=== PATIENT | female | born 1995 | race Caucasian/White ===

== ENCOUNTER 2017-12-09 08:13 | Emergency (ER) | payer BC ==
[2017-12-09 09:43] LABS: EGFR Non-African American 108.1 (>60)
[2017-12-09 09:50] LABS: Urine Appearance Clear; Urine Blood Negative (Negative); Urine Color Yellow; Urine Ketones Trace (Negative); Urine Protein 1+(30 mg/dL) (Negative); Urine Urobilinogen Negative (Negative)
[2017-12-09 09:51] LABS: ABS Basophils 0.1 10^3/ul (0-0.2); ABS Eosinophils 0.1 10^3/ul (0-0.6); ABS Lymphocytes 2.1 10^3/ul (1.0-4.8); ABS Neutrophils 8.6 10^3/ul (1.5-7.7); ABS Nucleated RBC 0 10^3/ul; Hematocrit 35 % (35-47); Hemoglobin 11.4 g/dl (12.0-16.0); Lymphocyte % 18.1 % (25-47); Mean Corpuscular HGB Conc 33 g/dl (31-36); Mean Corpuscular Hemoglobin 26 pg (27-31); Mean Corpuscular Volume 81 fL (80-97); Mean Platelet Volume 8 um3 (7.4-10.4); Nucleated Red Blood Cells % 0; Platelet Count 480 10^3/ul (150-450); Red Blood Count 4.31 10^6/ul (4.0-5.4); Red Cell Distribution Width 15 % (10.5-15); White Blood Count 11.9 10^3/ul (3.5-10.8)
[2017-12-09] MEDS ORDERED: chlorproMAZINE TAB* 50 MG PO PRN (14:12)
[2017-12-09] MEDS ORDERED: diPHENhydraMINE PO* 50 MG PO PRN (14:12)
[2017-12-09] MEDS: Haloperidol TAB* 5 MG PO PRN (16:40)
--- NOTE | 2017-12-10 09:10 | PN ---
ED Flex Patient Progress Note Date of Service: 12/10/17 Subjective: This is a 22 year-old F who is pending transfer to another psychiatric facility secondary to bipolar. Pt offers no complaints at this time. She states she slept well. Objective: Vitals: Most recent vital signs documented below. General NAD, Alert and oriented x3. Heart: rrr at 70 bpm Lungs: CTA or with rales, rhonchi, wheezing abd: soft nontender Laboratory: Current laboratory results documented below. Assessment: bipolar Plan: Pending psychiatric to transfer to [place] Disposition: home Condition: stable Vital Signs Temp Pulse Resp BP Pulse Ox 99.2 F 106 18 158/87 100 12/09/17 12:18 12/09/17 14:02 12/09/17 14:02 12/09/17 14:02 12/09/17 14:02 Lab Results - Entire Visit 12/09/17 12/09/17 12/09/17 18:21 09:20 09:20 WBC 11.9 H RBC 4.31 Hgb 11.4 L Hct 35 MCV 81 MCH 26 L MCHC 33 RDW 15 Plt Count 480 H MPV 8 Neut % (Auto) 72.1 Lymph % (Auto) 18.[address] % (Auto) 8.2 Eos % (Auto) 1.0 Baso % (Auto) 0.6 Absolute Neuts (auto) 8.6 H Absolute Lymphs (auto) 2.1 Absolute Monos (auto) 1.0 H Absolute Eos (auto) 0.1 Absolute Basos (auto) 0.1 Absolute Nucleated RBC 0 Nucleated RBC % 0 Sodium 135 Potassium 3.5 Chloride 103 Carbon Dioxide 23 Anion Gap 9 BUN 19 Creatinine 0.67 Est GFR ( Amer) 139.1 Est GFR (Non-Af Amer) 108.1 BUN/Creatinine Ratio 28.4 H Glucose 105 H Calcium 9.9 Total Bilirubin 0.80 AST 21 ALT 21 Alkaline Phosphatase 58 Total Protein 8.5 Albumin 4.6 Globulin 3.9 Albumin/Globulin Ratio 1.2 Triglycerides 67 Cholesterol 133 LDL Cholesterol 63 HDL Cholesterol 57.0 TSH 1.64 Free T4 1.03 Beta HCG, Quant < 0.60 Urine Color Urine Appearance Urine pH Ur Specific [place] Urine Protein Urine Ketones Urine Blood Urine Nitrate Urine Bilirubin Urine Urobilinogen Ur Leukocyte Esterase Urine WBC (Auto) Urine RBC (Auto) Ur Squamous Epith Cells Urine Bacteria Urine Glucose Salicylates < 2.50 Urine Opiates Screen Acetaminophen < 15 Ur Barbiturates Screen Ur Phencyclidine Scrn Ur Amphetamines Screen U Benzodiazepines Scrn Urine Cocaine Screen U Cannabinoids Screen Serum Alcohol < 10 12/09/17 12/09/17 09:10 09:10 WBC RBC Hgb Hct MCV MCH MCHC RDW Plt Count MPV Neut % (Auto) Lymph % (Auto) [facility] % (Auto) Eos % (Auto) Baso % (Auto) Absolute Neuts (auto) Absolute Lymphs (auto) Absolute Monos (auto) Absolute Eos (auto) Absolute Basos (auto) Absolute Nucleated RBC Nucleated RBC % Sodium Potassium Chloride Carbon Dioxide Anion Gap BUN Creatinine Est GFR ( Amer) Est GFR (Non-Af Amer) BUN/Creatinine Ratio Glucose Calcium Total Bilirubin AST ALT Alkaline Phosphatase Total Protein Albumin Globulin Albumin/Globulin Ratio Triglycerides Cholesterol LDL Cholesterol HDL Cholesterol TSH Free T4 Beta HCG, Quant Urine Color Yellow Urine Appearance Clear Urine pH 5.0 Ur Specific [place] 1.030 Urine Protein 1+(30 mg/dl) H Urine Ketones Trace H Urine Blood Negative Urine Nitrate Negative Urine Bilirubin Negative Urine Urobilinogen Negative Ur Leukocyte Esterase Negative Urine WBC (Auto) Trace(0-5/hpf) Urine RBC (Auto) 1+(3-5/hpf) H Ur Squamous Epith Cells Present H Urine Bacteria Absent Urine Glucose Negative Salicylates Urine Opiates Screen None detected Acetaminophen Ur Barbiturates Screen None detected Ur Phencyclidine Scrn None detected Ur Amphetamines Screen None detected U Benzodiazepines Scrn None detected Urine Cocaine Screen None detected U Cannabinoids Screen None detected Serum Alcohol
--- NOTE | 2017-12-10 10:23 | ED ---
Karol Santacruz Julia, scribed for Benigno Muniz MD on 12/09/17 at 0828 . Psychiatric Complaint - HPI Summary HPI Summary: This patient is a 22 year old F presenting to [facility] voluntarily for mental health evaluation. They deny current SI or HI. They deny any pain or self harm. They state that they would like to see a mental health optical designer soon and is requesting a meal. - History Of Current Complaint Chief Complaint: EDMentalHealth Hx Obtained From: Patient Character: Frustrated - impatient Has Suicidal: Denies: Thoughts, With A Plan Has Homicidal: Denies: Thoughts, With A Plan - Allergies/Home Medications Allergies/Adverse Reactions: Allergies Allergy/AdvReac Type Severity Reaction Status Date / Time No Known Allergies Allergy Verified 12/09/17 08:45 Home Medications: Home Medications NK [No Home Medications Reported] 12/09/17 [History Confirmed 12/09/17] PMH/Surg Hx/FS Hx/Imm Hx Sensory History: Denies: Hx Legally Blind EENT History: Denies: Hx Deafness Infectious Disease History: No Infectious Disease History: Denies: Traveled Outside the [place] in Last 30 Days Review of Systems Negative: Fever Musculoskeletal: Negative All Other Systems Reviewed And Are Negative: Yes Physical Exam - Summary Physical Exam Summary: Appearance: The patient is well-nourished in no acute distress and in no acute pain. Skin: The skin is warm and dry and skin color reflects adequate perfusion. HEENT: The head is normocephalic and atraumatic. The pupils are equal and reactive. The conjunctivae are clear and without drainage. Nares are patent and without drainage. Mouth reveals moist mucous membranes and the throat is without erythema and exudate. The external ears are intact. The ear canals are patent and without drainage. The tympanic membranes are intact. Neck: the neck is supple with full range of motion and non-tender. There are no carotid bruits. There is no neck vein distension. Respiratory: Chest is non-tender. Lungs are clear to auscultation and breath sounds are symmetrical and equal. Cardiovascular: Heart is regular rate and rhythm. There is no murmur or rub auscultated. There is no peripheral edema and pulses are symmetrical and equal. Abdomen: The abdomen is soft and non-tender. There are normal bowel sounds heard in all four quadrants and there is no organomegaly palpated. Musculoskeletal: There is no back tenderness noted. Extremities are non-tender with full range of motion. There is good capillary refill. There is no peripheral edema or calf tenderness elicited. Neurological: Patient is alert and oriented to person, place and time. The patient has symmetrical motor strength in all four extremities. Cranial nerves are grossly intact. Deep tendon reflexes are symmetrical and equal in all four extremities. Psychiatric: The patient has an appropriate affect and does not exhibit any anxiety or depression. Triage Information Reviewed: Yes Vital Signs On Initial Exam: Initial Vitals Temp Pulse Resp BP Pulse Ox 98.9 F 96 20 168/109 96 12/09/17 08:16 12/09/17 08:16 12/09/17 08:16 12/09/17 08:16 12/09/17 08:16 Vital Signs Reviewed: Yes Diagnostics - Vital Signs Vital Signs Temp Pulse Resp BP Pulse Ox 12/09/17 08:16 98.9 F 96 20 168/109 96 - Laboratory Lab Results: Lab Results 12/09/17 12/09/17 12/09/17 Range/Units 09:10 09:10 09:20 WBC (3.5-10.8) 10^3/ul RBC (4.0-5.4) 10^6/ul Hgb (12.0-16.0) g/dl Hct (35-47) % MCV (80-97) fL MCH (27-31) pg MCHC (31-36) g/dl RDW (10.5-15) % Plt Count (150-450) 10^3/ul MPV (7.4-10.4) um3 Neut % (Auto) (38-83) % Lymph % (Auto) (25-47) % [place] % (Auto) (1-9) % Eos % (Auto) (0-6) % Baso % (Auto) (0-2) % Absolute Neuts (auto) (1.5-7.7) 10^3/ul Absolute Lymphs (auto) (1.0-4.8) 10^3/ul Absolute Monos (auto) (0-0.8) 10^3/ul Absolute Eos (auto) (0-0.6) 10^3/ul Absolute Basos (auto) (0-0.2) 10^3/ul Absolute Nucleated RBC 10^3/ul Nucleated RBC % Sodium 135 (133-145) mmol/L Potassium 3.5 (3.5-5.0) mmol/L Chloride 103 (101-111) mmol/L Carbon Dioxide 23 (22-32) mmol/L Anion Gap 9 (2-11) mmol/L BUN 19 (6-24) mg/dL Creatinine 0.67 (0.51-0.95) mg/dL Est GFR ( Amer) 139.1 (>60) Est GFR (Non-Af Amer) 108.1 (>60) BUN/Creatinine Ratio 28.4 H (8-20) Glucose 105 H (70-100) mg/dL Calcium 9.9 (8.6-10.3) mg/dL Total Bilirubin 0.80 (0.2-1.0) mg/dL AST 21 (13-39) U/L ALT 21 (7-52) U/L Alkaline Phosphatase 58 (34-104) U/L Total Protein 8.5 (6.4-8.9) g/dL Albumin 4.6 (3.2-5.2) g/dL Globulin 3.9 (2-4) g/dL Albumin/Globulin Ratio 1.2 (1-3) Triglycerides 67 mg/dL Cholesterol 133 mg/dL LDL Cholesterol 63 mg/dL HDL Cholesterol 57.0 mg/dL TSH 1.64 (0.34-5.60) mcIU/mL Free T4 (0.61-1.12) ng/dL Beta HCG, Quant < 0.60 mIU/mL Urine Color Yellow Urine Appearance Clear Urine pH 5.0 (5-9) Ur Specific [place] 1.030 (1.010-1.030) Urine Protein 1+(30 mg/dl) H (Negative) Urine Ketones Trace H (Negative) Urine Blood Negative (Negative) Urine Nitrate Negative (Negative) Urine Bilirubin Negative (Negative) Urine Urobilinogen Negative (Negative) Ur Leukocyte Esterase Negative (Negative) Urine WBC (Auto) Trace(0-5/hpf) (Absent) Urine RBC (Auto) 1+(3-5/hpf) H (Absent) Ur Squamous Epith Cells Present H (Absent) Urine Bacteria Absent (Absent) Urine Glucose Negative (Negative) Salicylates < 2.50 (<30) mg/dL Urine Opiates Screen None detected (None Detect) Acetaminophen < 15 mcg/mL Ur Barbiturates Screen None detected (None Detect) Ur Phencyclidine Scrn None detected (None Detect) Ur Amphetamines Screen None detected (None Detect) U Benzodiazepines Scrn None detected (None Detect) Urine Cocaine Screen None detected (None Detect) U Cannabinoids Screen None detected (None Detect) Serum Alcohol < 10 (<10) mg/dL 12/09/17 12/09/17 Range/Units 09:20 18:21 WBC 11.9 H (3.5-10.8) 10^3/ul RBC 4.31 (4.0-5.4) 10^6/ul Hgb 11.4 L (12.0-16.0) g/dl Hct 35 (35-47) % MCV 81 (80-97) fL MCH 26 L (27-31) pg MCHC 33 (31-36) g/dl RDW 15 (10.5-15) % Plt Count 480 H (150-450) 10^3/ul MPV 8 (7.4-10.4) um3 Neut % (Auto) 72.1 (38-83) % Lymph % (Auto) 18.1 L (25-47) % Whitman % (Auto) 8.2 (1-9) % Eos % (Auto) 1.0 (0-6) % Baso % (Auto) 0.6 (0-2) % Absolute Neuts (auto) 8.6 H (1.5-7.7) 10^3/ul Absolute Lymphs (auto) 2.1 (1.0-4.8) 10^3/ul Absolute Monos (auto) 1.0 H (0-0.8) 10^3/ul Absolute Eos (auto) 0.1 (0-0.6) 10^3/ul Absolute Basos (auto) 0.1 (0-0.2) 10^3/ul Absolute Nucleated RBC 0 10^3/ul Nucleated RBC % 0 Sodium (133-145) mmol/L Potassium (3.5-5.0) mmol/L Chloride (101-111) mmol/L Carbon Dioxide (22-32) mmol/L Anion Gap (2-11) mmol/L BUN (6-24) mg/dL Creatinine (0.51-0.95) mg/dL Est GFR ( Amer) (>60) Est GFR (Non-Af Amer) (>60) BUN/Creatinine Ratio (8-20) Glucose (70-100) mg/dL Calcium (8.6-10.3) mg/dL Total Bilirubin (0.2-1.0) mg/dL AST (13-39) U/L ALT (7-52) U/L Alkaline Phosphatase (34-104) U/L Total Protein (6.4-8.9) g/dL Albumin (3.2-5.2) g/dL Globulin (2-4) g/dL Albumin/Globulin Ratio (1-3) Triglycerides mg/dL Cholesterol mg/dL LDL Cholesterol mg/dL HDL Cholesterol mg/dL TSH (0.34-5.60) mcIU/mL Free T4 1.03 (0.61-1.12) ng/dL Beta HCG, Quant mIU/mL Urine Color Urine Appearance Urine pH (5-9) Ur Specific [place] (1.010-1.030) Urine Protein (Negative) Urine Ketones (Negative) Urine Blood (Negative) Urine Nitrate (Negative) Urine Bilirubin (Negative) Urine Urobilinogen (Negative) Ur Leukocyte Esterase (Negative) Urine WBC (Auto) (Absent) Urine RBC (Auto) (Absent) Ur Squamous Epith Cells (Absent) Urine Bacteria (Absent) Urine Glucose (Negative) Salicylates (<30) mg/dL Urine Opiates Screen (None Detect) Acetaminophen mcg/mL Ur Barbiturates Screen (None Detect) Ur Phencyclidine Scrn (None Detect) Ur Amphetamines Screen (None Detect) U Benzodiazepines Scrn (None Detect) Urine Cocaine Screen (None Detect) U Cannabinoids Screen (None Detect) Serum Alcohol (<10) mg/dL Result Diagrams: 12/09/17 09:20 12/09/17 09:20 Lab Statement: Any lab studies that have been ordered have been reviewed, and results considered in the medical decision making process. Course/Dx - Course Course Of Treatment: Ankur presented with some mild to moderate laura, They were medically cleared and went over to the Flex unit to await a MHE. They were reaonably cooperative to the wait. - Differential Dx/Clinical Impression Provider Diagnosis: Bipolar disorder, Manic state Discharge - Discharge Plan Condition: Stable Disposition: OTHER Discharge Disposition Comment: Signed out to Dr. Keith at change of shift. Referrals: No Primary Care Phys,NOPCP [Primary Care Provider] - The documentation as recorded by the Karol damon Julia accurately reflects the service I personally performed and the decisions made by me, Benigno Muniz MD.
[2017-12-10] MEDS: Haloperidol TAB* 5 MG PO PRN (12:26)
--- NOTE | 2017-12-10 14:46 | ED ---
Lucien Santacruz Angela, scribed for Keith Kurtz MD on 12/10/17 at 0846 . Progress - Progress Note Progress Note: Pt was evaluated by Dr. Kenney, who recommends transfer. I discussed the case with Dr. Preciado, from [facility], where the pt will be transferred. Her diagnosis is bipolar disorder and manic state. Pt was medically cleared by Dr. Muniz, and now pt will be transferred to [facility]. Pt is hemodynamically stable, alert and oriented x3. Dr. Preciado accepted the pt for transfer. Condition: Stable Disposition: Transfer to [facility] Course/Dx - Diagnoses Provider Diagnoses: Bipolar disorder, Manic state The documentation as recorded by the Lucien damon Angela accurately reflects the service I personally performed and the decisions made by me, Keith Kurtz MD.
[2017-12-10 16:16] VITALS: BP 136/65
== END 2017-12-10 16:15 ==
LOC: ED 08:13
DX: F31.9 Bipolar disorder, unspecified (principal)
CPT/HCPCS: 36415; 80053; 80061; 80307; 80320; 80329; 81003; 81015; 84439; 84443; 84702; 85025; 86592; 93005; 99285; A9270-GY; G0480

== ENCOUNTER 2017-12-11 05:01 | Inpatient (IN) | payer BC ==
[2017-12-11 05:51] LABS: ABS Basophils 0.1 10^3/ul (0-0.2); ABS Eosinophils 0.1 10^3/ul (0-0.6); ABS Lymphocytes 2.1 10^3/ul (1.0-4.8); ABS Monocytes 0.8 10^3/ul (0-0.8); ABS Neutrophils 9.1 10^3/ul (1.5-7.7); ABS Nucleated RBC 0 10^3/ul; Eosinophil % 0.8 % (0-6); Hematocrit 34 % (35-47); Mean Corpuscular HGB Conc 33 g/dl (31-36); Mean Corpuscular Hemoglobin 27 pg (27-31); Mean Corpuscular Volume 82 fL (80-97); Mean Platelet Volume 8 um3 (7.4-10.4); Nucleated Red Blood Cells % 0; Platelet Count 431 10^3/ul (150-450); Red Blood Count 4.15 10^6/ul (4.0-5.4); Red Cell Distribution Width 14 % (10.5-15); White Blood Count 12.2 10^3/ul (3.5-10.8)
[2017-12-11 05:55] LABS: Urine Appearance Clear; Urine Blood 1+ (Negative); Urine Color Straw; Urine Ketones Negative (Negative); Urine Protein Negative (Negative); Urine Specific Gravity 1.008 (1.010-1.030); Urine Urobilinogen Negative (Negative)
[2017-12-11 06:03] LABS: EGFR Non-African American 127.7 (>60)
[2017-12-11] MEDS: hydrOXYzine HCL TAB* 50 MG PO PRN (21:09)
[2017-12-11] MEDS: diPHENhydraMINE PO* 50 MG PO PRN (22:30)
[2017-12-12] MEDS: hydrOXYzine HCL TAB* 50 MG PO PRN (03:40)
[2017-12-12] MEDS: Acetaminophen TAB* 325 MG PO PRN (04:56)
[2017-12-12] MEDS ORDERED: Polyethylene Glycol 3350* 17 GM PACKET PO PRN (11:23)
[2017-12-12] MEDS: Divalproex DR TAB(*) 500 MG PO SCH ×2 (12:37→21:13)
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
[2017-12-12] MEDS: diPHENhydraMINE PO* 50 MG PO PRN (21:13)
[2017-12-13] MEDS: Haloperidol TAB* 5 MG PO PRN (00:18)
--- NOTE | 2017-12-13 00:33 | ED ---
Lizz Santacruz Gabriel, scribed for Gurinder Keith MD on 12/11/17 at 0554 . Psychiatric Complaint - HPI Summary HPI Summary: This patient is a 22 year old F BIBA to [facility] after she contacted EMS for herself. The patient would like a MHE and has been admitted for mental previously. She states she is having trouble establishing boundaries in the context of her life. She is currently not on any medications. Patient denies SI and HI - History Of Current Complaint Chief Complaint: EDMentalHealth Time Seen by Provider: 12/11/17 05:16 Hx Obtained From: Patient Onset/Duration: Still Present Timing: Constant Severity Initially: Moderate Severity Currently: Moderate Related History: Positive For: Prior Psychiatric Issues Has Suicidal: Denies: Thoughts, With A Plan Has Homicidal: Denies: Thoughts, With A Plan - Allergies/Home Medications Allergies/Adverse Reactions: Allergies Allergy/AdvReac Type Severity Reaction Status Date / Time No Known Allergies Allergy Verified 12/11/17 22:57 PMH/Surg Hx/FS Hx/Imm Hx Endocrine/Hematology History: Denies: Hx Blood Disorders, Hx Blood Transfusions, Hx Diabetes, Hx Systemic Lupus Erythematosus, Hx Thyroid Disease GI History: Denies: Hx Gall Bladder Disease History: Denies: Hx Dialysis Sensory History: Denies: Hx Legally Blind, Hx Deafness Opthamlomology History: Denies: Hx Legally Blind Psychiatric History: Denies: Hx Eating Disorder, Hx of Violent Episodes Against Others Infectious Disease History: No Infectious Disease History: Denies: Traveled Outside the [place] in Last 30 Days - Family History Known Family History: Positive: Hypertension Negative: Respiratory Disease, Seizure Disorder - Social History Alcohol Use: Occasionally Substance Use Type: Reports: Marijuana Substance Use Comment - Amount & Last Used: OCCASIONAL Smoking Status (MU): Never Smoked Tobacco Review of Systems Negative: Fever Psychological: Other - NEGATIVE SI and HI All Other Systems Reviewed And Are Negative: Yes Physical Exam - Summary Physical Exam Summary: VITAL SIGNS: Reviewed. GENERAL: Patient is a well-developed and nourished female who is lying comfortable in the stretcher. Patient is not in any acute respiratory distress. HEAD AND FACE: No signs of trauma. No ecchymosis, hematomas or skull depressions. No sinus tenderness. EYES: PERRLA, EOMI x 2, No injected conjunctiva, no nystagmus. EARS: Hearing grossly intact. Ear canals and tympanic membranes are within normal limits. MOUTH: Oropharynx within normal limits. NECK: Supple, trachea is midline, no adenopathy, no JVD, no carotid bruit, no c- spine tenderness, neck with full ROM. CHEST: Symmetric, no tenderness at palpation LUNGS: Clear to auscultation bilaterally. No wheezing or crackles. CVS: Regular rate and rhythm, S1 and S2 present, no murmurs or gallops appreciated. ABDOMEN: Soft, non-tender. No signs of distention. No rebound no guarding, and no masses palpated. Bowel sounds are normal. EXTREMITIES: FROM in all major joints, no edema, no cyanosis or clubbing. NEURO: Alert and oriented x 3. No acute neurological deficits. Speech is normal and follows commands. SKIN: Dry and warm Triage Information Reviewed: Yes Vital Signs On Initial Exam: Initial Vitals Temp Pulse Resp BP Pulse Ox 98.2 F 80 22 157/82 97 12/11/17 05:02 12/11/17 05:02 12/11/17 05:02 12/11/17 05:02 12/11/17 05:02 Vital Signs Reviewed: Yes Diagnostics - Vital Signs Vital Signs Temp Pulse Resp BP Pulse Ox 12/11/17 05:02 98.2 F 80 22 157/82 97 - Laboratory Lab Results: Lab Results 12/11/17 Range/Units 05:17 WBC 12.2 H (3.5-10.8) 10^3/ul RBC 4.15 (4.0-5.4) 10^6/ul Hgb 11.0 L (12.0-16.0) g/dl Hct 34 L (35-47) % MCV 82 (80-97) fL MCH 27 (27-31) pg MCHC 33 (31-36) g/dl RDW 14 (10.5-15) % Plt Count 431 (150-450) 10^3/ul MPV 8 (7.4-10.4) um3 Neut % (Auto) 74.7 (38-83) % Lymph % (Auto) 17.0 L (25-47) % [place] % (Auto) 6.8 (1-9) % Eos % (Auto) 0.8 (0-6) % Baso % (Auto) 0.7 (0-2) % Absolute Neuts (auto) 9.1 H (1.5-7.7) 10^3/ul Absolute Lymphs (auto) 2.1 (1.0-4.8) 10^3/ul Absolute Monos (auto) 0.8 (0-0.8) 10^3/ul Absolute Eos (auto) 0.1 (0-0.6) 10^3/ul Absolute Basos (auto) 0.1 (0-0.2) 10^3/ul Absolute Nucleated RBC 0 10^3/ul Nucleated RBC % 0 Result Diagrams: 12/11/17 05:17 12/11/17 05:17 Lab Statement: Any lab studies that have been ordered have been reviewed, and results considered in the medical decision making process. Course/Dx - Differential Dx/Clinical Impression Provider Diagnosis: Depression Discharge - Discharge Plan Condition: Stable Disposition: HOME The documentation as recorded by the Lizz damon Gabriel accurately reflects the service I personally performed and the decisions made by Sagar dejesus Abdul, MD.
[2017-12-13] MEDS: Divalproex DR TAB(*) 500 MG PO SCH ×2 (09:30→22:00)
--- NOTE | 2017-12-13 11:43 | PN ---
MHU: Group Therapy Note - Service Type Service Type: [id number] Group Psychotherapy - Cognitive Behavioral Group Therapy ( CBT):Patient was attentive and participatory in CBT programming this morning, and remained in good behavioral control. Patient expressed positive insights regarding relevant treatment interventions and goals.
--- NOTE | 2017-12-13 14:26 | PN ---
Subjective - Subjective Service Type: 97870 Hosp care 25 min moderate complexity Subjective: Ankur reports "I'm feeling great. I'm feeling settled." She reports she is more calm and "I know why everything is happening at the same time." She states she is trying to refrain from taking responsibility for peers. She states she wants to help a specific peer because she speaks Icelandic. Ankur states that she is hopeful to be able to work Sunday evening for a garnett's event. She also states she is willing to stay in hospital as long as she needs to for stabilization. She reports mild acid reflux and sedation, but denies this is problematic for medication adherence. She states her mother, Emily Mera, is en route from [place] and gives fha underwriter permission to speak with her. Welder Assistant phones Mrs Mera at [phone]. She gives collateral that Ankur is delusional about being able to speak Icelandic-- that Mr Mera does but Ankur is not fluent more than ordering from restaurants. She states Ankur has a history of being more emotional when she doesn't get enough sleep. She also reports behaviors that are uncharacteristic of Ankur: using parents' emergency credit card to take friends out for dinner and drinks and similar large gestures. She reiterates that previous manic episodes included excessive spending and diminishing her bank account, plans to get , pawning tamara items. Mrs Mera states she is available to meet with fha underwriter and Ankur tomorrow afternoon. Welder Assistant is available at 2pm. Objective - Appearance Appearance: Well Developed/Nourished Dysmorphic Features: No Hygiene: Normal Grooming: Well Kept - Behavior Psychomotor Activities: Normal Exhibits Abnormal Movement: No - Attitude and Relatedness Attitude and Relatedness: Cooperative Eye Contact: Good - Speech Quality: Unpressured Latencies: Normal Quantity: Copious - Mood Patient's Decription of Mood: "Great" - Affect Observed Affect: Expansive Affect Consistent with: Euphoria - Thought Process Patient's Thought Process: Disorganized - grandiose, Loose Associations Thought Content: No Passive Wish, No Suicidal Planning, No Homicidal Ideation, No Paranoid Ideation - Sensorium Experiencing Hallucinations: No, Sensorium is Clear Type of Hallucinations: Visual: No, Auditory: No, Command: No - Level of Consciousness Level of Consciousness: Alert Orientation: Yes Intact, Yes Orientated to Time, Yes Orientated to Place, Yes Orientated to Person - Impulse Control Impulse Control: Poor - Insight and Judgement Insight and Judgement: Poor - Group Participation Particating in Group Activities: Yes - Medication Management Medication Management Adherence: Yes Assessment - Assessment Merits Inpatient Hospitalization: For Immediate Safety, For Stabilization, To Initiate Treatment, Consolidate Improvements, Pending Safe DC Plan Inpatient DSM-IV Dx: bipolar I d/o, most recent episode manic Clinical Impression: First psychiatric hospitalization for a 22yo [place]- female who presents as gender neutral. She presented to ED twice this week in a manic episode. She is agreeable to medication management. She submitted a 72-hour notice on 08/10/18 at 2215. She states she is willing to continue with hospitalization for stabilization. Plan - Plan Treatment Plan: Name: BRENNEN MERA Birthdate: 1995 [id number] continue acute intensive psychiatric treatment. decrease observation to q30min. family meeting 12/14/17 at 1400. Continued Medication Management: Start Medication Medications: Current Medications Acetaminophen (Tylenol Tab*) 650 mg PO Q4H PRN PRN Reason: for pain; or Temp >101 F Last Admin: 12/12/17 04:56 Dose: 650 mg Al Hydrox/Mg Hydrox/Simethicone (Maalox Plus*) 30 ml PO Q4H PRN PRN Reason: INDIGESTION Diphenhydramine HCl (Benadryl Po*) 50 mg PO BEDTIME PRN PRN Reason: INSOMNIA Last Admin: 12/12/17 21:13 Dose: 50 mg Divalproex Sodium (Depakote Dr Tab(*)) 500 mg PO BID HERMILO Last Admin: 12/13/17 09:30 Dose: 500 mg Haloperidol (Haldol Tab*) 5 mg PO Q6H PRN PRN Reason: anxiety/agitation Last Admin: 12/13/17 00:18 Dose: 5 mg Hydroxyzine HCl (Atarax Tab*) 50 mg PO Q6H PRN PRN Reason: ANXIETY Last Admin: 12/12/17 03:40 Dose: 50 mg Polyethylene Glycol/Electrolytes (Miralax*) 17 gm PO DAILY PRN PRN Reason: CONSTIPATION Last Admin: 12/12/17 12:00 Dose: 17 gm 12/13: increase depakote hs dose to 1000mg - Discharge Plan Discharge Plan: Outpatient Follow Up Outpatient Program: [facility]
[2017-12-13] MEDS: Al Hydrox/Mg Hydrox/Simet LIQ* 30 ML UDC PO PRN ×2 (15:52→23:30)
--- NOTE | 2017-12-13 16:40 | PN ---
MHU: Group Therapy Note - Service Type Service Type: [id number] Group Psychotherapy - Medication Education Group: Patient joined group and was intermittently in room. Patient asked questions that were not particularly on topic. Patient receptive to redirection when monopolizing group.
[2017-12-14] MEDS: hydrOXYzine HCL TAB* 50 MG PO PRN
[2017-12-14] MEDS: diPHENhydraMINE PO* 50 MG PO PRN (02:45)
[2017-12-14] MEDS: Divalproex DR TAB(*) 500 MG PO SCH ×2 (08:06→21:20)
[2017-12-14] MEDS: Al Hydrox/Mg Hydrox/Simet LIQ* 30 ML UDC PO PRN (09:25)
--- NOTE | 2017-12-14 17:00 | PN ---
Subjective - Subjective Service Type: 10290 Hosp care 35 min high complexity Subjective: Patient is noted to be intrusive to peers in that she feels responsibility to console and help them. She continues to endorse paranoid ideation, hypergraphia and racing thoughts. She is unaware of her behavior that has alarmed her current employer. She is currently on paid leave due to intense and inappropriate behavior. Patient participated in latter portion of 1-hour family meeting with her mother, Emily Yoo; Qian De [place] LMSW;and law writer. Please see SW note. Patient agreed to continue with hospitalization and rescinded 72-hour notice. She reports mild improvement in mood stabilization. She exhibits lability, especially in relation to her relationship with current partner. Privately, Mrs Yoo notifies providers of that Ankur's current state is atypical for her and aligns with manic criteria. Objective - Appearance Appearance: Well Developed/Nourished Dysmorphic Features: No Hygiene: Normal Grooming: Well Kept - Behavior Psychomotor Activities: Normal Exhibits Abnormal Movement: No - Attitude and Relatedness Attitude and Relatedness: Cooperative Eye Contact: Good - Speech Quality: Pressured Latencies: Normal Quantity: Copious - Mood Patient's Decription of Mood: "Great" - Affect Observed Affect: Expansive Affect Consistent with: Euphoria - Thought Process Patient's Thought Process: Loose Associations, Over Inclusive Thought Content: Yes Paranoid Ideation, No Passive Wish, No Suicidal Planning, No Homicidal Ideation - Sensorium Experiencing Hallucinations: No, Sensorium is Clear Type of Hallucinations: Visual: No, Auditory: No, Command: No - Level of Consciousness Level of Consciousness: Alert Orientation: Yes Intact, Yes Orientated to Time, Yes Orientated to Place, Yes Orientated to Person - Impulse Control Impulse Control: Poor - Insight and Judgement Insight and Judgement: Poor - Group Participation Particating in Group Activities: Yes - Medication Management Medication Management Adherence: Yes Assessment - Assessment Merits Inpatient Hospitalization: For Immediate Safety, For Stabilization, To Initiate Treatment, Pending Safe DC Plan Inpatient DSM-IV Dx: bipolar I d/o, most recent episode manic Clinical Impression: First psychiatric hospitalization for a 22yo [place]- female who presents as gender neutral. She presented to ED twice this week in a manic episode. She is agreeable to medication management. She submitted a 72-hour notice on 08/10/18 at 2215. She states she is willing to continue with hospitalization for stabilization. Plan - Plan Treatment Plan: Name: BRENNEN YOO Birthdate: 1995 [id number] continue acute intensive psychiatric treatment. patient rescinded the 72-hour notice. decrease observation to q30min and allow staff pass. valproic acid level, hgba1c and lipid panel on 12/15/17. Continued Medication Management: Start Medication Medications: Current Medications Acetaminophen (Tylenol Tab*) 650 mg PO Q4H PRN PRN Reason: for pain; or Temp >101 F Last Admin: 12/12/17 04:56 Dose: 650 mg Al Hydrox/Mg Hydrox/Simethicone (Maalox Plus*) 30 ml PO Q4H PRN PRN Reason: INDIGESTION Last Admin: 12/14/17 09:25 Dose: 30 ml Diphenhydramine HCl (Benadryl Po*) 50 mg PO BEDTIME PRN PRN Reason: INSOMNIA Last Admin: 12/14/17 02:45 Dose: 50 mg Divalproex Sodium (Depakote Dr Tab(*)) 1,000 mg PO BEDTIME HERMILO Last Admin: 12/13/17 22:00 Dose: 1,000 mg Divalproex Sodium (Depakote Dr Tab(*)) 500 mg PO DAILY HERMILO Last Admin: 12/14/17 08:06 Dose: 500 mg Haloperidol (Haldol Tab*) 5 mg PO Q6H PRN PRN Reason: anxiety/agitation Last Admin: 12/13/17 00:18 Dose: 5 mg Hydroxyzine HCl (Atarax Tab*) 50 mg PO Q6H PRN PRN Reason: ANXIETY Last Admin: 12/14/17 00:00 Dose: 50 mg Polyethylene Glycol/Electrolytes (Miralax*) 17 gm PO DAILY PRN PRN Reason: CONSTIPATION Last Admin: 12/12/17 12:00 Dose: 17 gm - Discharge Plan Discharge Plan: Outpatient Follow Up Outpatient Program: [facility]
[2017-12-15] MEDS: Al Hydrox/Mg Hydrox/Simet LIQ* 30 ML UDC PO PRN (07:24)
[2017-12-15] MEDS: Divalproex DR TAB(*) 500 MG PO SCH ×2 (07:24→20:06)
[2017-12-15] MEDS: diPHENhydraMINE PO* 50 MG PO PRN (23:05)
[2017-12-15] MEDS: Haloperidol TAB* 5 MG PO PRN (23:05)
[2017-12-16] MEDS: Divalproex DR TAB(*) 500 MG PO SCH ×2 (07:05→20:10)
[2017-12-16] MEDS: Al Hydrox/Mg Hydrox/Simet LIQ* 30 ML UDC PO PRN (15:32)
--- NOTE | 2017-12-16 18:35 | PN ---
Subjective - Subjective Date of Service: 12/16/17 Service Type: 99208 Hosp care 15 min low complexity Subjective: Ankur has been in the milieu most of the day and was very interested to see me. Reported that she has been feeling much improved. Mind isn't racing anymore. Slept 4-5 hours last night. Not anxious to leave. Tolerating Depakote well. Objective - Appearance Appearance: Obese Dysmorphic Features: No Hygiene: Normal Grooming: Well Kept - Behavior Exhibits Abnormal Movement: No - Attitude and Relatedness Attitude and Relatedness: Appropriate Eye Contact: Good - Speech Quality: Unpressured Latencies: Normal Quantity: Appropriate - Mood Patient's Decription of Mood: "Great" - Affect Observed Affect: Non-labile - Thought Process Patient's Thought Process: Coherent, Goal Directed Thought Content: No Passive Wish, No Suicidal Planning, No Homicidal Ideation, No Paranoid Ideation - Sensorium Experiencing Hallucinations: No, Sensorium is Clear Type of Hallucinations: Visual: No, Auditory: No, Command: No - Level of Consciousness Level of Consciousness: Alert Orientation: Yes Intact, Yes Orientated to Time, Yes Orientated to Place, Yes Orientated to Person - Impulse Control Impulse Control: Intact - Insight and Judgement Insight and Judgement: Fair - Group Participation Particating in Group Activities: No - Medication Management Medication Management Adherence: Yes Assessment - Assessment Merits Inpatient Hospitalization: Consolidate Improvements, For Discharge Planning Inpatient DSM-IV Dx: bipolar I d/o, most recent episode manic Plan - Plan Treatment Plan: Name: BRENNEN YOO Birthdate: 1995 [id number] Continued Medication Management: Continue Outpt Medication Medications: Current Medications Acetaminophen (Tylenol Tab*) 650 mg PO Q4H PRN PRN Reason: for pain; or Temp >101 F Last Admin: 12/12/17 04:56 Dose: 650 mg Al Hydrox/Mg Hydrox/Simethicone (Maalox Plus*) 30 ml PO Q4H PRN PRN Reason: INDIGESTION Last Admin: 12/16/17 15:32 Dose: 30 ml Diphenhydramine HCl (Benadryl Po*) 50 mg PO BEDTIME PRN PRN Reason: INSOMNIA Last Admin: 12/15/17 23:05 Dose: 50 mg Divalproex Sodium (Depakote Dr Tab(*)) 1,000 mg PO BEDTIME HERMILO Last Admin: 12/15/17 20:06 Dose: 1,000 mg Divalproex Sodium (Depakote Dr Tab(*)) 500 mg PO DAILY HERMILO Last Admin: 12/16/17 07:05 Dose: 500 mg Haloperidol (Haldol Tab*) 5 mg PO Q6H PRN PRN Reason: anxiety/agitation Last Admin: 12/15/17 23:05 Dose: 5 mg Hydroxyzine HCl (Atarax Tab*) 50 mg PO Q6H PRN PRN Reason: ANXIETY Last Admin: 12/14/17 00:00 Dose: 50 mg Polyethylene Glycol/Electrolytes (Miralax*) 17 gm PO DAILY PRN PRN Reason: CONSTIPATION Last Admin: 12/12/17 12:00 Dose: 17 gm - Discharge Plan Discharge Plan: Outpatient Follow Up Outpatient Program: [facility]
[2017-12-16] MEDS: Haloperidol TAB* 5 MG PO PRN (21:05)
[2017-12-16] MEDS: diPHENhydraMINE PO* 50 MG PO PRN (22:37)
[2017-12-16] MEDS: hydrOXYzine HCL TAB* 50 MG PO PRN (22:37)
[2017-12-17] MEDS: Divalproex DR TAB(*) 500 MG PO SCH ×2 (08:43→20:15)
--- NOTE | 2017-12-17 11:37 | PN ---
Subjective - Subjective Service Type: 67073 Hosp care 25 min moderate complexity Subjective: Patient continues to be intrusive and overly involved with peers' treatment. She is distractible and has not yet finished the MMPI questionnaire. Patient reports feeling sleepy and often lies down, sleeps briefly. She has plans to return to work after "paid leave" and is thinking about getting a second job, as well. She states she had a relaxing weekend and watched the olympics. She reports she slept "all night" last night. [employer] spoke with her mother, Emily, who has noticed that Ankur continues to make large generous gestures. she states that Ankur has invited peers from the unit to stay at her apartment over the summer. Objective - Appearance Appearance: Well Developed/Nourished Dysmorphic Features: No Hygiene: Normal Grooming: Well Kept - Behavior Psychomotor Activities: Normal Exhibits Abnormal Movement: No - Attitude and Relatedness Attitude and Relatedness: Cooperative Eye Contact: Good - Speech Quality: Unpressured Latencies: Normal Quantity: Copious - Mood Patient's Decription of Mood: "Good" - Affect Observed Affect: Expansive Affect Consistent with: Euphoria - Thought Process Patient's Thought Process: Loose Associations, Over Inclusive Thought Content: No Passive Wish, No Suicidal Planning, No Homicidal Ideation, No Paranoid Ideation - Sensorium Experiencing Hallucinations: No, Sensorium is Clear Type of Hallucinations: Visual: No, Auditory: No, Command: No - Level of Consciousness Level of Consciousness: Alert Orientation: Yes Intact, Yes Orientated to Time, Yes Orientated to Place, Yes Orientated to Person - Impulse Control Impulse Control: Poor - Insight and Judgement Insight and Judgement: Fair - Group Participation Particating in Group Activities: No - Medication Management Medication Management Adherence: Yes Assessment - Assessment Merits Inpatient Hospitalization: For Immediate Safety, For Stabilization, Consolidate Improvements, Pending Safe DC Plan Inpatient DSM-IV Dx: bipolar I d/o, most recent episode manic Clinical Impression: First psychiatric hospitalization for a 22yo [place]- female who presents as gender neutral. She presented to ED twice this week in a manic episode. She is agreeable to medication management. She states she is willing to continue with hospitalization for stabilization. Plan - Plan Treatment Plan: Name: BRENNEN YOO Birthdate: 1995 [id number] continue acute intensive psychiatric treatment. patient rescinded the 72-hour notice. decrease observation to q30min and allow staff pass. valproic acid level, hgba1c and lipid panel on 12/15/17. Continued Medication Management: Start Medication Medications: Current Medications Acetaminophen (Tylenol Tab*) 650 mg PO Q4H PRN PRN Reason: for pain; or Temp >101 F Last Admin: 12/12/17 04:56 Dose: 650 mg Al Hydrox/Mg Hydrox/Simethicone (Maalox Plus*) 30 ml PO Q4H PRN PRN Reason: INDIGESTION Last Admin: 12/16/17 15:32 Dose: 30 ml Diphenhydramine HCl (Benadryl Po*) 50 mg PO BEDTIME PRN PRN Reason: INSOMNIA Last Admin: 12/16/17 22:37 Dose: 50 mg Divalproex Sodium (Depakote Dr Tab(*)) 500 mg PO DAILY HERMILO Divalproex Sodium (Depakote Dr Tab(*)) 1,000 mg PO BEDTIME HERMILO Hydroxyzine HCl (Atarax Tab*) 50 mg PO Q6H PRN PRN Reason: ANXIETY Last Admin: 12/16/17 22:37 Dose: 50 mg Polyethylene Glycol/Electrolytes (Miralax*) 17 gm PO DAILY PRN PRN Reason: CONSTIPATION Last Admin: 12/12/17 12:00 Dose: 17 gm Quetiapine Fumarate (Seroquel Tab*) 50 mg PO BEDTIME HERMILO - Discharge Plan Discharge Plan: Outpatient Follow Up Outpatient Program: [facility]
[2017-12-17] MEDS: QUEtiapine TAB* 25 MG PO SCH (20:15)
[2017-12-17] MEDS ORDERED: Divalproex DR TAB(*) 500 MG PO SCH (21:00)
[2017-12-17] MEDS: hydrOXYzine HCL TAB* 50 MG PO PRN (22:17)
[2017-12-17] MEDS: Acetaminophen TAB* 325 MG PO PRN (22:22)
[2017-12-18] MEDS: Divalproex DR TAB(*) 500 MG PO SCH ×2 (08:21→21:47)
--- NOTE | 2017-12-18 11:26 | PN ---
Subjective - Subjective Service Type: 31391 Hosp care 25 min moderate complexity Subjective: Patient reports improved sleep. She continues to present as elevated, distractible and overly involved in peers' treatment. She states she feels "relieved, rested." She expresses desire for discharge in order to be able to go to participate in a performance this evening. She states she contacted her accompanist in case she were not discharged today. She was given an MMPI last week and has yet to complete it. She states she will prioritize this today then goes into great detail about the Lambert-Brigg personality inventory and results of when she has taken this multiple times. Objective - Appearance Appearance: Obese Dysmorphic Features: No Hygiene: Normal Grooming: Well Kept - Behavior Psychomotor Activities: Normal Exhibits Abnormal Movement: No - Attitude and Relatedness Attitude and Relatedness: Needy Eye Contact: Good - Speech Quality: Unpressured Latencies: Normal Quantity: Copious - Mood Patient's Decription of Mood: "relieved" - Affect Observed Affect: Expansive Affect Consistent with: Euphoria - Thought Process Patient's Thought Process: Tangential, Over Inclusive Thought Content: No Passive Wish, No Suicidal Planning, No Homicidal Ideation, No Paranoid Ideation - Sensorium Experiencing Hallucinations: No, Sensorium is Clear Type of Hallucinations: Visual: No, Auditory: No, Command: No - Level of Consciousness Level of Consciousness: Alert Orientation: Yes Intact, Yes Orientated to Time, Yes Orientated to Place, Yes Orientated to Person - Impulse Control Impulse Control: Tenuous - Insight and Judgement Insight and Judgement: Poor - Group Participation Particating in Group Activities: Yes - Medication Management Medication Management Adherence: Yes Assessment - Assessment Merits Inpatient Hospitalization: For Immediate Safety, For Stabilization, Consolidate Improvements, Pending Safe DC Plan Inpatient DSM-IV Dx: bipolar I d/o, most recent episode manic Clinical Impression: First psychiatric hospitalization for a 22yo ugandan- female who presents as gender neutral. She presented to ED twice this week in a manic episode. She is agreeable to medication management. She states she is willing to continue with hospitalization for stabilization. Plan - Plan Treatment Plan: Name: BRENNEN YOO Birthdate: 1995 [id number] continue acute intensive psychiatric treatment. patient rescinded the 72-hour notice. decrease observation to q30min and allow staff pass. Continued Medication Management: Start Medication Medications: Current Medications Acetaminophen (Tylenol Tab*) 650 mg PO Q4H PRN PRN Reason: for pain; or Temp >101 F Last Admin: 12/17/17 22:22 Dose: 650 mg Al Hydrox/Mg Hydrox/Simethicone (Maalox Plus*) 30 ml PO Q4H PRN PRN Reason: INDIGESTION Last Admin: 12/16/17 15:32 Dose: 30 ml Diphenhydramine HCl (Benadryl Po*) 50 mg PO BEDTIME PRN PRN Reason: INSOMNIA Last Admin: 12/16/17 22:37 Dose: 50 mg Divalproex Sodium (Depakote Dr Tab(*)) 500 mg PO DAILY HERMILO Last Admin: 12/18/17 08:21 Dose: 500 mg Divalproex Sodium (Depakote Dr Tab(*)) 1,000 mg PO BEDTIME HERMILO Last Admin: 12/17/17 20:15 Dose: 1,000 mg Hydroxyzine HCl (Atarax Tab*) 50 mg PO Q6H PRN PRN Reason: ANXIETY Last Admin: 12/17/17 22:17 Dose: 50 mg Polyethylene Glycol/Electrolytes (Miralax*) 17 gm PO DAILY PRN PRN Reason: CONSTIPATION Last Admin: 12/12/17 12:00 Dose: 17 gm Quetiapine Fumarate (Seroquel Tab*) 50 mg PO BEDTIME HERMILO Last Admin: 12/17/17 20:15 Dose: 50 mg - Discharge Plan Discharge Plan: Outpatient Follow Up Outpatient Program: [facility]
[2017-12-18] MEDS: Al Hydrox/Mg Hydrox/Simet LIQ* 30 ML UDC PO PRN (19:40)
[2017-12-18] MEDS: QUEtiapine TAB* 25 MG PO SCH (21:53)
[2017-12-19] MEDS: Divalproex DR TAB(*) 500 MG PO SCH ×2 (08:22→21:34)
[2017-12-19] MEDS: Al Hydrox/Mg Hydrox/Simet LIQ* 30 ML UDC PO PRN (14:10)
--- NOTE | 2017-12-19 16:32 | PN ---
Subjective - Subjective Service Type: 28479 Hosp care 25 min moderate complexity Subjective: Ankur continues to present as distractible, hyperactive, with loud speech and intense eye contact. She is labile when meeting with scientific writer and psychiatric social worker supervisor. She has poor insight into her interpersonal relationships and elevated sense of importance. She submitted a 72-hour notice. Objective - Appearance Appearance: Well Developed/Nourished, Obese Dysmorphic Features: Yes Hygiene: Normal Grooming: Well Kept - Behavior Psychomotor Activities: Normal Exhibits Abnormal Movement: No - Attitude and Relatedness Attitude and Relatedness: Superficially Cooperative Eye Contact: Good - Speech Quality: Pressured Latencies: Normal Quantity: Copious - Mood Patient's Decription of Mood: "Upset" - Affect Observed Affect: Labile Affect Consistent with: Euphoria - Thought Process Patient's Thought Process: Tangential, Over Inclusive Thought Content: No Passive Wish, No Suicidal Planning, No Homicidal Ideation, No Paranoid Ideation - Sensorium Experiencing Hallucinations: No, Sensorium is Clear Type of Hallucinations: Visual: No, Auditory: No, Command: No - Level of Consciousness Level of Consciousness: Alert Orientation: Yes Intact, Yes Orientated to Time, Yes Orientated to Place, Yes Orientated to Person - Impulse Control Impulse Control: Poor - Insight and Judgement Insight and Judgement: Poor - Group Participation Particating in Group Activities: Yes - Medication Management Medication Management Adherence: Yes Assessment - Assessment Merits Inpatient Hospitalization: For Immediate Safety, For Stabilization, Consolidate Improvements, Pending Safe DC Plan Inpatient DSM-V Dx: F31.10 Clinical Impression: First psychiatric hospitalization for a 22yo ukrainian- female who presents as gender neutral. She presented to ED twice this week in a manic episode. She is agreeable to medication management. She states she is willing to continue with hospitalization for stabilization. Plan - Plan Treatment Plan: Name: BRENNEN YOO Birthdate: 1995 [id number] continue acute intensive psychiatric treatment. patient submitted a 72-hour notice 12/19/17 at approx 11am. Continued Medication Management: Start Medication Medications: Current Medications Acetaminophen (Tylenol Tab*) 650 mg PO Q4H PRN PRN Reason: for pain; or Temp >101 F Last Admin: 12/17/17 22:22 Dose: 650 mg Al Hydrox/Mg Hydrox/Simethicone (Maalox Plus*) 30 ml PO Q4H PRN PRN Reason: INDIGESTION Last Admin: 12/19/17 14:10 Dose: 30 ml Diphenhydramine HCl (Benadryl Po*) 50 mg PO BEDTIME PRN PRN Reason: INSOMNIA Last Admin: 12/16/17 22:37 Dose: 50 mg Divalproex Sodium (Depakote Dr Tab(*)) 500 mg PO DAILY HERMILO Last Admin: 12/19/17 08:22 Dose: 500 mg Divalproex Sodium (Depakote Dr Tab(*)) 1,000 mg PO BEDTIME HERMILO Last Admin: 12/18/17 21:47 Dose: 1,000 mg Hydroxyzine HCl (Atarax Tab*) 50 mg PO Q6H PRN PRN Reason: ANXIETY Last Admin: 12/17/17 22:17 Dose: 50 mg Polyethylene Glycol/Electrolytes (Miralax*) 17 gm PO DAILY PRN PRN Reason: CONSTIPATION Last Admin: 12/12/17 12:00 Dose: 17 gm Quetiapine Fumarate (Seroquel Tab*) 100 mg PO BEDTIME HERMILO - Discharge Plan Discharge Plan[facility]
[2017-12-19] MEDS: Acetaminophen TAB* 325 MG PO PRN (20:23)
[2017-12-19] MEDS: QUEtiapine TAB* 100 MG PO SCH (21:34)
[2017-12-20] MEDS: Divalproex DR TAB(*) 500 MG PO SCH ×2 (08:32→20:45)
--- NOTE | 2017-12-20 16:59 | PN ---
MHU: Group Therapy Note - Service Type Service Type: 72707 Group Psychotherapy - Medication Education Group: Patient joined group and was intermittently in room. Patient asked questions that were not particularly on topic. Patient receptive to redirection when monopolizing group.
[2017-12-20] MEDS: QUEtiapine TAB* 100 MG PO SCH (22:03)
[2017-12-21] MEDS: Acetaminophen TAB* 325 MG PO PRN (05:00)
[2017-12-21] MEDS: Divalproex DR TAB(*) 500 MG PO SCH (07:56)
--- NOTE | 2017-12-21 13:24 | PN ---
<Haydee Love - Last Filed: 12/21/17 13:58> Subjective - Subjective Service Type: [id number] Hosp care 15 min low complexity Subjective: Ankur found pacing in milieu with her peers in an attempt to get her metabolism going post lunch. Speech is copious, feels she has a good grasp on how to care for her illness and points to her rescinding her last 72 hour notice. Elevated sense of self importance. Discussed Valproic level as being mid range therapeutic, introduced idea of increasing depakote hs dose, which will be discussed fully when Marissa LIZAMA, sees her. Objective - Appearance Appearance: Obese Dysmorphic Features: No Hygiene: Normal Grooming: Well Kept - Behavior Psychomotor Activities: Abnormal-Increased Exhibits Abnormal Movement: No - Attitude and Relatedness Attitude and Relatedness: Superficially Cooperative Eye Contact: Good - Speech Quality: Pressured Latencies: Short Quantity: Copious - Mood Patient's Decription of Mood: "happy and mellow" - Affect Observed Affect: Fair Affect Consistent with: Euthymia - Thought Process Patient's Thought Process: Tangential, Over Inclusive Thought Content: No Passive Wish, No Suicidal Planning, No Homicidal Ideation, No Paranoid Ideation - Sensorium Experiencing Hallucinations: No, Sensorium is Clear Type of Hallucinations: Visual: No, Auditory: No, Command: No - Level of Consciousness Level of Consciousness: Alert Orientation: Yes Intact, Yes Orientated to Time, Yes Orientated to Place, Yes Orientated to Person - Impulse Control Impulse Control: Poor - Insight and Judgement Insight and Judgement: Poor - Group Participation Particating in Group Activities: Yes - Medication Management Medication Management Adherence: Yes Assessment - Assessment Merits Inpatient Hospitalization: For Stabilization, Consolidate Improvements, For Discharge Planning Inpatient DSM-V Dx: F31.10 Clinical Impression: First psychiatric hospitalization for a 22yo malay- female who presents as gender neutral. She presented to ED twice this week in a manic episode. She is agreeable to medication management. She states she is willing to continue with hospitalization for stabilization. Plan - Plan Treatment Plan: Name: BRENNEN YOO Birthdate: 1995 [id number] Medications: Current Medications Acetaminophen (Tylenol Tab*) 650 mg PO Q4H PRN PRN Reason: for pain; or Temp >101 F Last Admin: 12/21/17 05:00 Dose: 650 mg Al Hydrox/Mg Hydrox/Simethicone (Maalox Plus*) 30 ml PO Q4H PRN PRN Reason: INDIGESTION Last Admin: 12/19/17 14:10 Dose: 30 ml Diphenhydramine HCl (Benadryl Po*) 50 mg PO BEDTIME PRN PRN Reason: INSOMNIA Last Admin: 12/16/17 22:37 Dose: 50 mg Divalproex Sodium (Depakote Dr Tab(*)) 500 mg PO DAILY HERMILO Last Admin: 12/21/17 07:56 Dose: 500 mg Divalproex Sodium (Depakote Dr Tab(*)) 1,000 mg PO BEDTIME HERMILO Last Admin: 12/20/17 20:45 Dose: 1,000 mg Hydroxyzine HCl (Atarax Tab*) 50 mg PO Q6H PRN PRN Reason: ANXIETY Last Admin: 12/17/17 22:17 Dose: 50 mg Polyethylene Glycol/Electrolytes (Miralax*) 17 gm PO DAILY PRN PRN Reason: CONSTIPATION Last Admin: 12/12/17 12:00 Dose: 17 gm Quetiapine Fumarate (Seroquel Tab*) 100 mg PO BEDTIME HERMILO Last Admin: 12/20/17 22:03 Dose: 100 mg <Sally Dale - Last Filed: 12/21/17 15:08> Subjective - Subjective Subjective: Patient agrees to titration of depakote to 1250mg qhs and continue 500mg am dose. [employer] assisted her with utilizing computer to verify health insurance bill payment. She reports feeling settled since last evening's staff pass and is agreeable to continued hospitalization. Plan - Plan Treatment Plan: Name: BRENNEN YOO Birthdate: 1995 [id number] continue acute intensive psychiatric treatment. change legal status to 2PC. Increase depakote to 500mg qam and 1250mg qhs. Continued Medication Management: Start Medication Medications: Current Medications Acetaminophen (Tylenol Tab*) 650 mg PO Q4H PRN PRN Reason: for pain; or Temp >101 F Last Admin: 12/21/17 05:00 Dose: 650 mg Al Hydrox/Mg Hydrox/Simethicone (Maalox Plus*) 30 ml PO Q4H PRN PRN Reason: INDIGESTION Last Admin: 12/19/17 14:10 Dose: 30 ml Diphenhydramine HCl (Benadryl Po*) 50 mg PO BEDTIME PRN PRN Reason: INSOMNIA Last Admin: 12/16/17 22:37 Dose: 50 mg Divalproex Sodium (Depakote Dr Tab(*)) 500 mg PO DAILY HERMILO Last Admin: 12/21/17 07:56 Dose: 500 mg Divalproex Sodium (Depakote Dr Tab(*)) 1,250 mg PO BEDTIME HERMILO Last Admin: 12/20/17 20:45 Dose: 1,000 mg Hydroxyzine HCl (Atarax Tab*) 50 mg PO Q6H PRN PRN Reason: ANXIETY Last Admin: 12/17/17 22:17 Dose: 50 mg Polyethylene Glycol/Electrolytes (Miralax*) 17 gm PO DAILY PRN PRN Reason: CONSTIPATION Last Admin: 12/12/17 12:00 Dose: 17 gm Quetiapine Fumarate (Seroquel Tab*) 100 mg PO BEDTIME HERMILO Last Admin: 12/20/17 22:03 Dose: 100 mg - Discharge Plan Discharge Plan: Outpatient Follow Up Outpatient Program: [facility]
[2017-12-21] MEDS: Divalproex DR TAB(*) 250 MG PO SCH (20:37)
[2017-12-21] MEDS: QUEtiapine TAB* 100 MG PO SCH (22:08)
[2017-12-22] MEDS: Acetaminophen TAB* 325 MG PO PRN (04:55)
[2017-12-22] MEDS: Divalproex DR TAB(*) 500 MG PO SCH (08:54)
[2017-12-22] MEDS: Divalproex DR TAB(*) 250 MG PO SCH (21:26)
[2017-12-22] MEDS: QUEtiapine TAB* 100 MG PO SCH (22:23)
[2017-12-23] MEDS: QUEtiapine TAB* 100 MG PO SCH ×2 (03:00→21:54)
[2017-12-23] MEDS: Divalproex DR TAB(*) 500 MG PO SCH (08:44)
[2017-12-23] MEDS: Divalproex DR TAB(*) 250 MG PO SCH (20:43)
[2017-12-24] MEDS: QUEtiapine TAB* 100 MG PO SCH ×5 (00:15→22:29)
[2017-12-24] MEDS: Divalproex DR TAB(*) 500 MG PO SCH (09:44)
--- NOTE | 2017-12-24 10:51 | PN ---
<IvanHaydee - Last Filed: 12/24/17 10:44> Subjective - Subjective Service Type: [id number] Hosp care 15 min low complexity Subjective: Ankur is reported to need redirection re: boundary issues and continuing loud and boisterous affect during the weekend per staff. We discussed increase in Seroquel to 100mg tid to manage continued manic behaviors and patient consented. Her distress and attempted intervention with peer d/t language she felt inappropriate was addressed and she was encouraged to concentrate on own her treatment. Ankur c/o rash at inner thighs, noted to be localized, appears to be contact dermatitis. Objective - Appearance Appearance: Obese Dysmorphic Features: No Hygiene: Normal Grooming: Well Kept - Behavior Psychomotor Activities: Abnormal-Increased Exhibits Abnormal Movement: No - Attitude and Relatedness Attitude and Relatedness: Cooperative Eye Contact: Good - Speech Quality: Pressured Latencies: Short Quantity: Copious - Mood Patient's Decription of Mood: "Okay" - Affect Observed Affect: Expansive - Thought Process Patient's Thought Process: Tangential Thought Content: No Passive Wish, No Suicidal Planning, No Homicidal Ideation, No Paranoid Ideation - Sensorium Experiencing Hallucinations: No, Sensorium is Clear Type of Hallucinations: Visual: No, Auditory: No, Command: No - Level of Consciousness Level of Consciousness: Alert Orientation: Yes Intact, Yes Orientated to Time, Yes Orientated to Place, Yes Orientated to Person - Impulse Control Impulse Control: Tenuous - Insight and Judgement Insight and Judgement: Poor - Group Participation Particating in Group Activities: Yes - Medication Management Medication Management Adherence: Yes Assessment - Assessment Merits Inpatient Hospitalization: For Immediate Safety, For Stabilization, Consolidate Improvements Inpatient DSM-V Dx: F31.10 Clinical Impression: First psychiatric hospitalization for a 22yo martiniquais- female who presents as gender neutral. She presented to ED twice this week in a manic episode. She is agreeable to medication management. She states she is willing to continue with hospitalization for stabilization. Seroquel increased to 100mg tid this day. Requires continued hospitalization for immediate safety, consolidation of improvements and discharge planning. Plan - Plan Treatment Plan: Name: BRENNEN YOO Birthdate: 1995 [id number] Medications: Current Medications Acetaminophen (Tylenol Tab*) 650 mg PO Q4H PRN PRN Reason: for pain; or Temp >101 F Last Admin: 12/22/17 04:55 Dose: 650 mg Al Hydrox/Mg Hydrox/Simethicone (Maalox Plus*) 30 ml PO Q4H PRN PRN Reason: INDIGESTION Last Admin: 12/19/17 14:10 Dose: 30 ml Diphenhydramine HCl (Benadryl Po*) 50 mg PO BEDTIME PRN PRN Reason: INSOMNIA Last Admin: 12/16/17 22:37 Dose: 50 mg Divalproex Sodium (Depakote Dr Tab(*)) 500 mg PO DAILY HERMILO Last Admin: 12/24/17 09:44 Dose: 500 mg Divalproex Sodium (Depakote Dr Tab(*)) 1,250 mg PO BEDTIME [facility] Last Admin: 12/23/17 20:43 Dose: 1,250 mg Hydrocortisone (Hytone Cream 1%*) 1 applic TOPICAL BID HERMILO Hydroxyzine HCl (Atarax Tab*) 50 mg PO Q6H PRN PRN Reason: ANXIETY Last Admin: 12/17/17 22:17 Dose: 50 mg Polyethylene Glycol/Electrolytes (Miralax*) 17 gm PO DAILY PRN PRN Reason: CONSTIPATION Last Admin: 12/12/17 12:00 Dose: 17 gm Quetiapine Fumarate (Seroquel Tab*) 100 mg PO TID [facility] Throat Lozenges (Chloraseptic Ayden*) 1 ayden PO Q2H PRN PRN Reason: SORE THROAT <ChitoKarlaSally - Last Filed: 12/24/17 12:08> Subjective - Subjective Service Type: 54406 Hosp care 25 min moderate complexity Subjective: above note reviewed and discussed. gianna Plan - Plan Treatment Plan: Name: BRENNEN YOO Birthdate: 1995 [id number] continue acute intensive psychiatric treatment. increase seroquel to target laura. Continued Medication Management: Start Medication Medications: Current Medications Acetaminophen (Tylenol Tab*) 650 mg PO Q4H PRN PRN Reason: for pain; or Temp >101 F Last Admin: 12/22/17 04:55 Dose: 650 mg Al Hydrox/Mg Hydrox/Simethicone (Maalox Plus*) 30 ml PO Q4H PRN PRN Reason: INDIGESTION Last Admin: 12/19/17 14:10 Dose: 30 ml Diphenhydramine HCl (Benadryl Po*) 50 mg PO BEDTIME PRN PRN Reason: INSOMNIA Last Admin: 12/16/17 22:37 Dose: 50 mg Divalproex Sodium (Depakote Dr Tab(*)) 500 mg PO DAILY [facility] Last Admin: 12/24/17 09:44 Dose: 500 mg Divalproex Sodium (Depakote Dr Tab(*)) 1,250 mg PO BEDTIME [facility] Last Admin: 12/23/17 20:43 Dose: 1,250 mg Hydrocortisone (Hytone Cream 1%*) 1 applic TOPICAL BID [facility] Hydroxyzine HCl (Atarax Tab*) 50 mg PO Q6H PRN PRN Reason: ANXIETY Last Admin: 12/17/17 22:17 Dose: 50 mg Polyethylene Glycol/Electrolytes (Miralax*) 17 gm PO DAILY PRN PRN Reason: CONSTIPATION Last Admin: 12/12/17 12:00 Dose: 17 gm Quetiapine Fumarate (Seroquel Tab*) 100 mg PO TID [facility] Last Admin: 12/24/17 11:29 Dose: 100 mg Throat Lozenges (Chloraseptic Ayden*) 1 ayden PO Q2H PRN PRN Reason: SORE THROAT Last Admin: 12/24/17 11:29 Dose: 1 ayden - Discharge Plan Discharge Plan: Outpatient Follow Up Outpatient Program: [facility]
[2017-12-24] MEDS: Benzocaine/Menthol LOZ* 1 LOZENGE PO PRN ×4 (11:29→22:59)
[2017-12-24] MEDS: Hydrocortisone 1% CREAM* 30 GM TUBE TOPICAL SCH ×2 (12:52→22:28)
--- NOTE | 2017-12-24 13:06 | PN ---
MHU: Group Therapy Note - Service Type Service Type: 12488 Group Psychotherapy - cognitive behavioral group psychotherapy note: Ankur remains somewhat expansive and intrusive in group discussion, often initiating topics or describing personal experience that are off topic. She is receptive to redirection.
[2017-12-24] MEDS: Divalproex DR TAB(*) 250 MG PO SCH (20:58)
[2017-12-25] MEDS: diPHENhydraMINE PO* 50 MG PO PRN (01:40)
[2017-12-25] MEDS: Hydrocortisone 1% CREAM* 30 GM TUBE TOPICAL SCH ×2 (07:47→21:10)
[2017-12-25] MEDS: QUEtiapine TAB* 100 MG PO SCH ×3 (08:49→20:05)
[2017-12-25] MEDS: Divalproex DR TAB(*) 500 MG PO SCH (08:50)
[2017-12-25] MEDS: Benzocaine/Menthol LOZ* 1 LOZENGE PO PRN ×2 (10:44→22:06)
--- NOTE | 2017-12-25 11:14 | PN ---
MHU: Group Therapy Note - Service Type Service Type: [id number] Group Psychotherapy - Cognitive Behavioral Group Therapy ( CBT):Patient was attentive and participatory in CBT programming this morning, and remained in good behavioral control. Patient expressed positive insights regarding relevant treatment interventions and goals.
--- NOTE | 2017-12-25 17:19 | CONS ---
PSYCHOLOGICAL REPORT: DATE OF CONSULTATION: 12/25/17 REASON FOR REFERRAL: Noreen or "Ankur" was referred for personality testing in order to assist with diagnostic interest: Specifically does this patient experienced hypomania or are her presenting symptoms better considered under characterological vulnerabilities. TESTS ADMINISTERED: Ankur completed the [place] Multiphasic Personality Inventory- 2 (MMPI-2). She was given feedback in individual conversation regarding results. RELEVANT HISTORY: Ankur is a gender neutral 22-year-old Georgian female who presents to our ED in rather disorganized and combination of grandiose and paranoid ideation. I thought this is her first psychiatric hospitalization. Ankur identifies having experienced hypomanic symptoms for the past 7 years. She is able to recount some episodes where she had somewhat grandiose thinking and engaged in some reckless behaviors that she mostly associates with spending. Her positive insights regarding her bad decision making seemed to prevent her from making even worse decisions at that time. Ankur currently is employed in the [employer] industry working at a local establishment that make [employer]. She apparently exhibited some questionable behaviors in the work place that is somewhat consistent with harassing behaviors. BEHAVIORAL OBSERVATIONS: Ankur tends to engage in groups often in an overproductive and rather loud fashion. She tends to relate personal experiences in an overinclusive manner and can tend to monopolize group conversation at times. She does respond to the staff's efforts to redirect back on topic and expresses gratitude for group leadership. She has positive insights currently with compliance with medications, and also expresses positive insights regarding her need for increased sleep hygiene. She describes significant diminishment of symptoms during the course of her hospitalization and staff notes insight has shown improvement. TEST RESULTS: Ankur provides a valid protocol on this administration of the MMPI- 2 having 3 clinical scales slightly elevated. The scales of most interest in this regard are her elevation on hypomania scale (T=68) with concomitant very low scoring on the social introversion scale (T=38). This can be descriptive of persons who may engage in having a great many social relationships but who struggle to establish and maintain healthy intimacy. This may be exacerbated by questionable decision making in a hypomanic condition at times. She also has minor elevations on the conversion, hysteria, and paranoia scales to a similar degree. This is felt to be reflective of some difficulties in familial contacts as well as being hypersensitive to perceptions or criticism. A positive prognostic indicator is a low score on the psychopathic deviate scale. Persons who elevate the psychopathic deviate and hypomania scales tend to engage in a great deal of impulsive behaviors. Noreen impresses as having good insight about diminishing bad decision making especially in the context of hypomania. IMPRESSIONS AND RECOMMENDATIONS: Ankur continues to manage her symptoms progressively throughout the course of her stay while here. She presently expresses positive insights regarding her need to engage in outpatient treatment including use of medications. She reports good response to current medications especially in the context of improved sleep hygiene. She continues to be somewhat overinclusive in programming, but shows improvement and is responsive to staff redirection in this regard. She expresses prosocial goals and objectives in a spontaneous fashion and is anxious to be discharged presently. DIAGNOSTIC IMPRESSION: Supports bipolar I condition. Her testing does not support concerns regarding characterological vulnerabilities consistent with borderline or narcissistic personality disorder. Her positive response to medication supports the assertion that her condition is an Carlock I, bipolar I disorder. [id number]/CPS #: [id number] NICANOR
[2017-12-25] MEDS ORDERED: QUEtiapine XR TAB* 300 MG PO SCH (20:00)
[2017-12-25] MEDS: Divalproex DR TAB(*) 250 MG PO SCH (21:08)
[2017-12-26] MEDS: Divalproex DR TAB(*) 500 MG PO SCH (08:30)
[2017-12-26] MEDS: Hydrocortisone 1% CREAM* 30 GM TUBE TOPICAL SCH (08:30)
[2017-12-26 08:38] VITALS: BP 131/73
[2017-12-26] MEDS: QUEtiapine TAB* 100 MG PO SCH (09:24)
--- NOTE | 2017-12-27 12:07 | DS ---
CC: [facility] * DISCHARGE SUMMARY: DATE OF ADMISSION: 12/11/17 DATE OF DISCHARGE: 12/26/17 SUPERVISING PSYCHIATRIST: Dr. Vaughn Jovel.* (DICTATED BY CHERYL MANCUSO NP ) DISCHARGE DIAGNOSES: 1. Bipolar 1 disorder. 2. Gender dysphoria. CONDITION AT THE TIME OF DISCHARGE: Improved. The patient is calm and in behavioral control. She is well related and no longer exhibiting symptoms of laura. She has good insight, which is much improved since her date of admission. The patient has been safe on all checks. She reports readiness for discharge and agrees to continue outpatient setting. She also states agreement to contact this unit or return to the ED should her symptoms worsen. Her mother is present for discharge. She agrees that the patient is at baseline and ready for discharge. MENTAL STATUS EXAM: At the time of discharge, the patient is a tall, obese, half-[place]an/half-Swazi female who presents as gender neutral. She is well groomed and wearing her own clothing. Her hair is dark and short. She is wearing dark rimmed glasses and her own clothing. She appears stated age. She is cooperative with interview and calm. No psychomotor activity, abnormality present. She is alert and oriented x3. Her concentration is good. Her memory is 3/3. Her mood is euthymic and affect is congruent. Her eye contact is good. Her speech is soft and articulate. Her thought process is logical, goal directed, coherent. Her content of thought is negative for AV hallucinations, SI, HI, , or grandiosity. Her insight and judgement are good, much improved over the course of the hospitalization. Her fund of knowledge is excellent. DISCHARGE INSTRUCTIONS GIVEN TO THE PATIENT: A. Medications: Depakote ER 1750 mg q.h.s., quetiapine XR 300 mg every evening , and hydroxyzine 50 mg p.o. b.i.d. p.r.n. anxiety. These were electronically prescribed to [facility] pharmacy. B. Diet: Regular. C. Activities: Ambulation as tolerated. Tobacco cessation is not applicable and there are no studies or labs pending at the time of discharge. D. Followup care: The patient was given information from the physician referral line for a primary care followup. She was referred to [facility] and has intake scheduled on 12/28/17 at 10:30 a.m. E. Substance abuse followup: The patient denied need for substance abuse treatment. She reports motivation to abstain from cannabis use. HOSPITAL COURSE: Part A. Reason for admission: The patient presented to the emergency department with disorganized and manic behavior. This was her second presentation to our emergency department within a week. Her first presentation , our unit was full and she was transferred to another hospital, but discharged from their emergency department. When the patient returned to our emergency department, she was agreeable to voluntary admission or psychiatric services and admitted on a voluntary status. While in the emergency department, she was deemed medically stable. She had a CBC and CMP done and had minor abnormalities. Her urinalysis was positive for 1+ blood. Toxicology was negative as was her urine drug screen. Part B. Psychiatric treatment rendered: The patient was admitted to adult behavioral services unit on voluntary status. She was placed on 15-minute checks for safety. Her code status was full. She was encouraged to participate in supportive milieu, individual sessions with staff, and psychoeducational groups. She was submitted her 72 hour notice on the evening of her admission as she wanted to be able to participate in weekend plans that she had already made. During the first week of her admission, the patient was highly intrusive, grandiose. She was intrusive to staff and peers. She was distractible and loud. She exhibited high energy and decreased need for sleep. She perseverated on loose associations and resentments towards her current partner and previous girlfriend. The patient was agreeable to medication suggestion. She was started on Depakote and this dose was titrated up. Her initial valproic acid level obtained was 71 on 12/15/17. On 12/14/17, we had a family meeting during which the patient rescinded her 72 hour notice and was agreeable to remain hospitalized over the weekend to promote sleep and stabilization. The week of 12/17/17, we added quetiapine at bedtime at a low dose due to the patient's concern for weight gain. She continued to exhibit hypomanic behavior. She was improving slowly, but continued to have poor insight. Quetiapine was titrated up to 100 mg. The patient reported improved sleep, but was noted to wake easily and had an elevated energy during the day. She is submitted a 72-hour notice on 12/19/17. She states that she did this in response to not having control over her time of discharge. On 12/20/17 had another family meeting that included the patient's girlfriend and her mother. During this meeting, her girlfriend voiced concern about the patient's discharge if this would happen while her mother was out of town. The patient's girlfriend, Nhi was tearful and expressed feeling overwhelmed with responsibility to care for Ankur in her active manic state. Later in the day, the patient rescinded her 72-hour notice and was agreeable to remain over the weekend for continued stabilization. We repeated a Depakote level on 12/21/17, which was noted to be 83. The patient was agreeable to suggestion to increase Depakote dose further. On 12/24/17, the patient continued to present as mildly elevated, increase the Seroquel to 3 times a day. The patient was encouraged to sleep as much as possible to break her lauar. The patient's legal status was changed to 2-PC due to her poor insight and to need for continued hospitalization. The patient was agreeable to this change in legal status and stated understanding of rationale. On 12/25/17, we change the Seroquel to extended release for better control of bipolar depression. The patient tolerated this well. Today on day of discharge, the patient is calm and in behavioral control. She has been safe on all checks as stated above. Both the patient and her mother are agreeable to discharge plan and followup. The patient was no longer exhibiting intrusiveness. She was no longer exhibiting grandiosity or loose association. She was able to identify rationale thought processes during the beginning of her hospitalization. Over the course of the admission, the patient was notified of suggested medical leave from her job. She was encouraged to discuss this further with her employer after discharge. On day of discharge, the patient and her mother were given discharge instructions. Questions were answered by newswriter, nursing staff, and social work. The patient is knowledgeable of how to contact to this unit or this newswriter with questions or concerns after discharge. We hope that Ankur does well in the outpatient circuit and utilizes the hospital again if needed. CHERYL MANCUOS, FOOD SERVICE TEAM MEMBER [id number]/[facility] #: [id number] [facility]ITAL[facility]hea
== END 2017-12-26 11:00 | disposition home or self-care (01) | DRG 753 ==
LOC: ED 05:01 → BSU 16:00
PROVIDERS: ADMIT Psychiatry & Neurology Psychiatry; ATTEND Psychiatry & Neurology Psychiatry
PROC: GZHZZZZ Group Psychotherapy (ICD-10-PCS; principal; 2017-12-13)
DX: F31.10 Bipolar disorder, current episode manic without psychotic features, unspecified (principal); E66.9 Obesity, unspecified; F64.9 Gender identity disorder, unspecified; F12.10 Cannabis abuse, uncomplicated; F39 Unspecified mood [affective] disorder; R21 Rash and other nonspecific skin eruption; Z82.49 Family history of ischemic heart disease and other diseases of the circulatory system; Z68.38 Body mass index [BMI] 38.0-38.9, adult; Z72.89 Other problems related to lifestyle
CPT/HCPCS: 36415; 80053; 80061; 80164; 80307; 80320; 80329; 81003; 81015; 83036; 84443; 84702; 85025; 90853; 93005; 96102; 96374; 99222; 99231; 99232; 99233; 99238; 99283; A9270-GY; G0480